=== PATIENT | male | born 1990 | race Two or more races ===

== ENCOUNTER → 2020-08-06 15:51 | Outpatient (BNVA) | payer MEDICAID, SELFPAY | PROVIDERS: PCP Internal Medicine; Visit Provider Student in an Organized Health Care Education/Training Program | DX: M75.81 Other shoulder lesions, right shoulder (principal); M75.82 Other shoulder lesions, left shoulder; M77.02 Medial epicondylitis, left elbow; R76.8 Other specified abnormal immunological findings in serum | CPT/HCPCS: 99202 ==

== ENCOUNTER 2020-08-07 12:37 | Outpatient (REF) | payer MEDICAID, SELFPAY ==
--- NOTE | ~2020-08-07 | XR_ITS ---
EXAMINATION: BILATERAL HAND/WRIST. BILATERAL KNEES. CLINICAL INFORMATION: Pain. COMPARISON: None TECHNIQUE: 3 views each hand/wrist. 4 views each knee. FINDINGS: LEFT HAND: PIP, DIP and MCP joints are normal. No fracture, bony abnormality. The intercarpal joints are normal. The soft tissues are normal. RIGHT HAND/WRIST: Visualized PIP, DIP and MCP joints are normal. No bony erosive changes or loose bodies. No joint effusion or soft tissue swelling. The right wrist appears normal. No fracture or dislocation. LEFT KNEE: There is tricompartment joint space is normal. No bony erosive changes, loose bodies or joint effusions. RIGHT KNEE: The tricompartment joint space is normal. There is no loose bodies or bony erosive changes. The soft tissues are normal. No abnormal joint effusion seen. XR/XR knee RT 3V IMPRESSION: Unremarkable bilateral hand/wrist exam. Bilateral knee exam.
--- NOTE | ~2020-08-07 | XR_ITS ---
EXAMINATION: BILATERAL HAND/WRIST. BILATERAL KNEES. CLINICAL INFORMATION: Pain. COMPARISON: None TECHNIQUE: 3 views each hand/wrist. 4 views each knee. FINDINGS: LEFT HAND: PIP, DIP and MCP joints are normal. No fracture, bony abnormality. The intercarpal joints are normal. The soft tissues are normal. RIGHT HAND/WRIST: Visualized PIP, DIP and MCP joints are normal. No bony erosive changes or loose bodies. No joint effusion or soft tissue swelling. The right wrist appears normal. No fracture or dislocation. LEFT KNEE: There is tricompartment joint space is normal. No bony erosive changes, loose bodies or joint effusions. RIGHT KNEE: The tricompartment joint space is normal. There is no loose bodies or bony erosive changes. The soft tissues are normal. No abnormal joint effusion seen. XR/XR knee LT 3V IMPRESSION: Unremarkable bilateral hand/wrist exam. Bilateral knee exam.
--- NOTE | ~2020-08-07 | XR_ITS ---
EXAMINATION: BILATERAL HAND/WRIST. BILATERAL KNEES. CLINICAL INFORMATION: Pain. COMPARISON: None TECHNIQUE: 3 views each hand/wrist. 4 views each knee. FINDINGS: LEFT HAND: PIP, DIP and MCP joints are normal. No fracture, bony abnormality. The intercarpal joints are normal. The soft tissues are normal. RIGHT HAND/WRIST: Visualized PIP, DIP and MCP joints are normal. No bony erosive changes or loose bodies. No joint effusion or soft tissue swelling. The right wrist appears normal. No fracture or dislocation. LEFT KNEE: There is tricompartment joint space is normal. No bony erosive changes, loose bodies or joint effusions. RIGHT KNEE: The tricompartment joint space is normal. There is no loose bodies or bony erosive changes. The soft tissues are normal. No abnormal joint effusion seen. XR/XR hand wrist RT IMPRESSION: Unremarkable bilateral hand/wrist exam. Bilateral knee exam.
--- NOTE | ~2020-08-07 | XR_ITS ---
EXAMINATION: BILATERAL HAND/WRIST. BILATERAL KNEES. CLINICAL INFORMATION: Pain. COMPARISON: None TECHNIQUE: 3 views each hand/wrist. 4 views each knee. FINDINGS: LEFT HAND: PIP, DIP and MCP joints are normal. No fracture, bony abnormality. The intercarpal joints are normal. The soft tissues are normal. RIGHT HAND/WRIST: Visualized PIP, DIP and MCP joints are normal. No bony erosive changes or loose bodies. No joint effusion or soft tissue swelling. The right wrist appears normal. No fracture or dislocation. LEFT KNEE: There is tricompartment joint space is normal. No bony erosive changes, loose bodies or joint effusions. RIGHT KNEE: The tricompartment joint space is normal. There is no loose bodies or bony erosive changes. The soft tissues are normal. No abnormal joint effusion seen. XR/XR hand wrist LT IMPRESSION: Unremarkable bilateral hand/wrist exam. Bilateral knee exam.
[2020-08-07 13:06] LABS: MANUAL DIFF FLAG NO
[2020-08-07 13:10] LABS: Basophils Percent Auto 0.6 % (0-2); Eosinophils Absolute Auto 0.2 X10*3/uL (0.0-0.4); Eosinophils Percent Auto 2.4 % (0-4); Hematocrit 41.4 % (42-52); Hemoglobin 13.9 g/dl (14.0-18.0); Imm Gran Abs Auto 0.01 X10*3/uL (0.00-0.03); Imm Gran Pct Auto 0.1 % (0.0-0.4); Lymphocytes Absolute Auto 1.3 X10*3/uL (1.2-4.9); Mean Corpuscular HGB Conc 33.6 g/dl (31.0-36.0); Mean Corpuscular Hemoglobin 31.7 pg (27.0-33.0); Mean Corpuscular Volume 94.3 fL (80-98); Mean Platelet Volume 10.1 fL (9.4-12.4); Monocytes Absolute Auto 0.6 X10*3/uL (0.1-1.2); Monocytes Percent Auto 8.8 % (2-11); Neutrophils Absolute Auto 4.6 X10*3/uL (2.0-8.3); Neutrophils Percent Auto 69.1 % (45-73); Platelet Count 192 X10*3/uL (160-400); Red Blood Count 4.39 X10*6/uL (4.60-5.80); Red Cell Distribution Width 12.1 % (11.0-16.0); White Blood Count 6.7 X10*3/uL (4.8-10.8)
[2020-08-07 13:54] LABS: Erythrocyte Sedimentation Rate 2 MM/HR (0-15)
[2020-08-07 14:27] LABS: Alanine Aminotransferase 22 U/L (0-40); Albumin Level 4.6 g/dL (3.5-5.0); Alkaline Phosphatase 60 U/L (39-117); Anion Gap 11 (12-20); Aspartate Amino Transferase 18 U/L (5-37); Bilirubin Total 0.6 mg/dL (0.0-1.0); Blood Urea Nitrogen 15 mg/dL (9-16); C Reactive Protein 0.09 mg/dL (< or = 0.50); Calcium 9.4 mg/dL (8.4-10.2); Carbon Dioxide 31 mmol/L (22-29); Chloride 102 mmol/L (96-108); Estimated Glomerular Filt Rate > 60; Glucose Random 86 mg/dL (60-115); Potassium 4.5 mmol/L (3.3-5.1); Sodium 139 mmol/L (135-145); Total Protein 7.5 g/dL (6.5-8.0)
[2020-08-07 14:34] LABS: Rheumatoid Factor 26.2 IU/mL (<15.0)
[2020-08-08 08:52] LABS: HBsAGNum1 0.19 S/CO (0.00-0.99); Hepatitis B Surface Antigen Negative (Negative)
[2020-08-08 09:36] LABS: Hepatitis B Core Antibody Nonreactive (Nonreactive); ~Hepatitis C Antibody Nonreactive (Nonreactive)
[2020-08-08 12:46] LABS: HBS Num2 9.93 mIU/mL (0-7.99); HBS Num3 9.58 mIU/mL (0-7.99)
[2020-08-09 01:57] LABS: Cyclic Citrullinated Peptide <16 UNITS
[2020-08-09 08:28] LABS: Hepatitis A Antibody IgM 0.11 Index (0-0.79); ~Hepatitis A Antibody IgM Nonreactive (Nonreactive)
[2020-08-09 08:47] LABS: HBS Num1 9.94 mIU/mL (0-7.99); HBc Num1 0.11 S/CO (0.00-0.79); ~HepC Num1 0.09 S/CO (0.00-0.79)
[2020-08-09 08:53] LABS: ~Hepatitis B Surface Antibody Grayzone (Nonreactive)
[2020-08-09 13:12] LABS: Antibody to SS-A Antigen <1.0 NEG AI (<1.0 NEG); Antibody to SS-B Antigen <1.0 NEG AI (<1.0 NEG)
[2020-08-10 18:37] LABS: TS Negative Control Passed; TS Panel A 0; TS Panel B 0; TS Positive Control Passed; TSpotTB Negative (SeeBelow)
== END 2020-08-07 12:38 | disposition home or self-care (01) ==
LOC: HO.LAB 12:37
PROVIDERS: PCP Internal Medicine; Visit Provider Student in an Organized Health Care Education/Training Program
DX: R76.8 Other specified abnormal immunological findings in serum (principal)
CPT/HCPCS: 36415; 73110; 73130; 73562; 80053; 85025; 85652; 86140; 86200; 86235; 86431; 86481; 86704; 86706; 86709; 86803; 87340

== ENCOUNTER → 2020-08-29 10:55 | Outpatient (BNVA) | payer MEDICAID, SELFPAY | PROVIDERS: Visit Provider Student in an Organized Health Care Education/Training Program | DX: R76.8 Other specified abnormal immunological findings in serum (principal) | CPT/HCPCS: 99212 ==

== ENCOUNTER 2020-10-01 11:00 | Outpatient (RCR) | payer MEDICAID, SELFPAY ==
--- NOTE | 2020-08-22 15:31 | MHC.PT.EP ---
[facility] [place] Office [place] Office [place] Office [address] Lala Blackwell [address] [phone] F: [phone] F: [phone] F: [phone] F: [phone] Physical Therapy Plan of Care Date of Evaluation: 08/22/20 Date of Surgery: Diagnosis: R shoulder pain Assessment: 30 y/o RHD male referred to PT with R shoulder pain. However patients pain is located mainly L medial elbow and wrist and we will focus on these sx. Pain and difficulty with dressing, lifting, reaching, and his exercise regime. S/s consistent with L medial epicondylitis and ? scaphoid/lunate involvement due to wrist clicking and pain. Cervical and shoulder AROM WNL, mildly decreased wrist extension/flexion and elbow pronation strength, increased TTP L pronators/wrist flexors, and impaired postural awareness. Scapular strength not assessed this date. He would benefit from PT 1x/week foro 5 weeks to address impairments, implement HEP and optimize functional mobility. POC to include taping, STM/IASTM, wrist isometrics > eccentrics, scapular strenghtening and postural training. Frequency and Duration: The patient will be seen 1x/week for 5 weeks Short Term Goals: 3 week 1. I with HEP 2. Pt will report 50% reduction in pain of L medial elbow Usp Goals: 5 week 1. I with HEP and self management of sx 2. Pt will be able to dress with pain < 3/10 3. Pt will be able to reach overhead with pain < 3/10 Treatment Plan: Modalities to reduce pain, spasms and effusion. Manual therapy to restore motion and function. Therapeutic exercise to improve strength and flexibility. Neuromuscular re-education for posture and balance. Therapeutic activities to return to functional activities of daily living. Electronically signed by: Love Samano PT Please sign and return to therapist. Thank you for your referral.
--- NOTE | 2020-10-02 17:28 | MHC.PT.DC ---
[facility] [place] Office [place] Office [place] Office [address] Lala Blackwell [address] [phone] F: [phone] F: [phone] F: [phone] F: [phone] Physical Therapy Discharge Report Diagnosis: R shoulder pain Date of Surgery: Date of Evaluation: 08/22/20 Date of Discharge: 10/01/20 Treatments to Date: 6 Cancellations to Date: 1 No Shows to Date: 0 Discharge Status: Independent with HEP Discharge Summary: Pt reports he feels better overall and is ready for d/c. Reviewed precautions with RA and HEP. No further questions. Electronically signed by: Love Samano PT Please sign and return to therapist. Thank you for your referral.
== END 2020-10-02 17:28 | disposition home or self-care (01) ==
LOC: HO.PT 11:00
PROVIDERS: PCP Internal Medicine; Visit Provider Student in an Organized Health Care Education/Training Program
DX: M75.81 Other shoulder lesions, right shoulder (principal)
CPT/HCPCS: 97110; 97161

== ENCOUNTER 2021-03-12 12:20 | Outpatient (REF) | payer MEDICAID, SELFPAY ==
[2021-03-12 13:38] LABS: Alanine Aminotransferase 27 U/L (0-40); Albumin Level 4.4 g/dL (3.5-5.0); Alkaline Phosphatase 57 U/L (39-117); Anion Gap 11 (12-20); Aspartate Amino Transferase 19 U/L (5-37); Bilirubin Total 0.6 mg/dL (0.0-1.0); Blood Urea Nitrogen 18 mg/dL (9-16); Calcium 9.4 mg/dL (8.4-10.2); Carbon Dioxide 26 mmol/L (22-29); Chloride 106 mmol/L (96-108); Cholesterol 174 mg/dL; Estimated Glomerular Filt Rate > 60; Glucose Random 89 mg/dL (60-115); HDL Cholesterol 36 mg/dL; LDL Cholesterol Calculated 118 mg/dl; Potassium 4.2 mmol/L (3.3-5.1); Sodium 139 mmol/L (135-145); Total Protein 7.3 g/dL (6.5-8.0); Triglycerides 104 mg/dL
[2021-03-12 13:54] LABS: Erythrocyte Sedimentation Rate 3 MM/HR (0-15)
== END 2021-03-12 12:21 | disposition home or self-care (01) ==
LOC: HO.LAB 12:20
PROVIDERS: Visit Provider Internal Medicine
DX: M05.9 Rheumatoid arthritis with rheumatoid factor, unspecified (principal); M13.0 Polyarthritis, unspecified
CPT/HCPCS: 36415; 80053; 80061; 85652

== ENCOUNTER 2021-08-28 07:48 | Outpatient (REF) | payer MEDICAID, SELFPAY ==
[2021-08-28 09:18] LABS: MANUAL DIFF FLAG NO
[2021-08-28 09:43] LABS: Basophils Percent Auto 0.5 % (0-2); Eosinophils Absolute Auto 0.1 X10*3/uL (0.0-0.4); Eosinophils Percent Auto 1.7 % (0-4); Hematocrit 38.9 % (42.0-52.0); Hemoglobin 13.2 g/dl (14.0-18.0); Imm Gran Abs Auto 0.02 X10*3/uL (0.00-0.03); Imm Gran Pct Auto 0.3 % (0.0-0.4); Lymphocytes Absolute Auto 1.2 X10*3/uL (1.2-4.9); Lymphocytes Percent Auto 18.9 % (20-40); Mean Corpuscular HGB Conc 33.9 g/dl (31.0-36.0); Mean Corpuscular Hemoglobin 32.5 pg (27.0-33.0); Mean Corpuscular Volume 95.8 fL (80.0-98.0); Mean Platelet Volume 10.5 fL (9.4-12.4); Monocytes Absolute Auto 0.5 X10*3/uL (0.1-1.2); Monocytes Percent Auto 7.9 % (2-11); Neutrophils Absolute Auto 4.7 x10*3/uL (2.0-8.3); Neutrophils Percent Auto 70.7 % (45-73); Platelet Count 207 X10*3/uL (160-400); Red Blood Count 4.06 X10*6/uL (4.60-5.80); Red Cell Distribution Width 12.8 % (11.0-16.0); White Blood Count 6.6 X10*3/uL (4.8-10.8)
[2021-08-28 10:22] LABS: Alanine Aminotransferase 33 U/L (0-40); Albumin Level 4.4 g/dL (3.5-5.0); Alkaline Phosphatase 59 U/L (39-117); Anion Gap 10 (12-20); Aspartate Amino Transferase 20 U/L (5-37); Bilirubin Total 0.5 mg/dL (0.0-1.0); Blood Urea Nitrogen 16 mg/dL (9-16); C Reactive Protein 0.14 mg/dL (< or = 0.50); Calcium 9.4 mg/dL (8.4-10.2); Carbon Dioxide 27 mmol/L (22-29); Chloride 105 mmol/L (96-108); Erythrocyte Sedimentation Rate 2 MM/HR (0-15); Estimated Glomerular Filt Rate > 60; Glucose Random 100 mg/dL (60-115); Potassium 4.1 mmol/L (3.3-5.1); Sodium 138 mmol/L (135-145); Total Protein 7.1 g/dL (6.5-8.0)
== END 2021-08-28 07:49 | disposition home or self-care (01) ==
LOC: HO.LAB 07:48
PROVIDERS: PCP Internal Medicine; Visit Provider Nurse Practitioner Family
DX: M05.9 Rheumatoid arthritis with rheumatoid factor, unspecified (principal); Z79.899 Other long term (current) drug therapy
CPT/HCPCS: 36415; 80053; 85025; 85652; 86140; 99212

== ENCOUNTER → 2021-09-03 08:12 | Outpatient (BNVA) | payer MEDICAID, SELFPAY | PROVIDERS: PCP Internal Medicine; Visit Provider Nurse Practitioner Family | DX: M05.9 Rheumatoid arthritis with rheumatoid factor, unspecified (principal); H54.8 Legal blindness, as defined in USA | CPT/HCPCS: 99212 ==

== ENCOUNTER 2021-10-03 08:14 | Outpatient (REF) | payer MEDICAID, SELFPAY ==
[2021-10-03 08:56] LABS: MANUAL DIFF FLAG NO
[2021-10-03 09:08] LABS: Basophils Percent Auto 0.7 % (0-2); Eosinophils Absolute Auto 0.1 X10*3/uL (0.0-0.4); Eosinophils Percent Auto 2.6 % (0-4); Hematocrit 37.7 % (42.0-52.0); Hemoglobin 12.7 g/dl (14.0-18.0); Imm Gran Abs Auto 0.01 X10*3/uL (0.00-0.03); Imm Gran Pct Auto 0.2 % (0.0-0.4); Lymphocytes Absolute Auto 1.2 X10*3/uL (1.2-4.9); Lymphocytes Percent Auto 22.6 % (20-40); Mean Corpuscular HGB Conc 33.7 g/dl (31.0-36.0); Mean Corpuscular Hemoglobin 32.6 pg (27.0-33.0); Mean Corpuscular Volume 96.9 fL (80.0-98.0); Mean Platelet Volume 10.5 fL (9.4-12.4); Monocytes Absolute Auto 0.4 X10*3/uL (0.1-1.2); Monocytes Percent Auto 7.3 % (2-11); Neutrophils Absolute Auto 3.6 x10*3/uL (2.0-8.3); Neutrophils Percent Auto 66.6 % (45-73); Platelet Count 193 X10*3/uL (160-400); Red Blood Count 3.89 X10*6/uL (4.60-5.80); Red Cell Distribution Width 12.6 % (11.0-16.0); White Blood Count 5.5 X10*3/uL (4.8-10.8)
[2021-10-03 09:43] LABS: Alanine Aminotransferase 31 U/L (0-40); Albumin Level 4.1 g/dL (3.5-5.0); Alkaline Phosphatase 55 U/L (39-117); Anion Gap 11 (12-20); Aspartate Amino Transferase 17 U/L (5-37); Bilirubin Total 0.4 mg/dL (0.0-1.0); Blood Urea Nitrogen 13 mg/dL (9-16); C Reactive Protein 0.09 mg/dL (< or = 0.50); Calcium 9.6 mg/dL (8.4-10.2); Carbon Dioxide 27 mmol/L (22-29); Chloride 106 mmol/L (96-108); Estimated Glomerular Filt Rate > 60; Glucose Random 95 mg/dL (60-115); Potassium 4.2 mmol/L (3.3-5.1); Sodium 140 mmol/L (135-145); Total Protein 6.7 g/dL (6.5-8.0)
[2021-10-03 09:49] LABS: Erythrocyte Sedimentation Rate 2 MM/HR (0-15)
== END 2021-10-03 08:15 | disposition home or self-care (01) ==
LOC: HO.LAB 08:14
PROVIDERS: PCP Internal Medicine; Visit Provider Nurse Practitioner Family
DX: M05.9 Rheumatoid arthritis with rheumatoid factor, unspecified (principal)
CPT/HCPCS: 36415; 80053; 85025; 85652; 86140

== ENCOUNTER 2021-12-09 12:28 | Outpatient (REF) | payer MEDICAID, SELFPAY ==
[2021-12-09 13:41] LABS: MANUAL DIFF FLAG NO
[2021-12-09 13:47] LABS: Basophils Percent Auto 0.3 % (0-2); Eosinophils Absolute Auto 0.1 X10*3/uL (0.0-0.4); Eosinophils Percent Auto 1.2 % (0-4); Hematocrit 38.1 % (42.0-52.0); Hemoglobin 12.8 g/dl (14.0-18.0); Imm Gran Abs Auto 0.03 X10*3/uL (0.00-0.03); Imm Gran Pct Auto 0.4 % (0.0-0.4); Lymphocytes Absolute Auto 1.2 X10*3/uL (1.2-4.9); Lymphocytes Percent Auto 15.2 % (20-40); Mean Corpuscular HGB Conc 33.6 g/dl (31.0-36.0); Mean Corpuscular Hemoglobin 32.1 pg (27.0-33.0); Mean Corpuscular Volume 95.5 fL (80.0-98.0); Mean Platelet Volume 10.4 fL (9.4-12.4); Monocytes Absolute Auto 0.6 X10*3/uL (0.1-1.2); Monocytes Percent Auto 8.4 % (2-11); Neutrophils Absolute Auto 5.7 x10*3/uL (2.0-8.3); Neutrophils Percent Auto 74.5 % (45-73); Platelet Count 205 X10*3/uL (160-400); Red Blood Count 3.99 X10*6/uL (4.60-5.80); Red Cell Distribution Width 12.7 % (11.0-16.0); White Blood Count 7.6 X10*3/uL (4.8-10.8)
[2021-12-09 14:12] LABS: Alanine Aminotransferase 45 U/L (0-40); Aspartate Amino Transferase 26 U/L (5-37); C Reactive Protein 0.16 mg/dL (< or = 0.50); Estimated Glomerular Filt Rate > 60
[2021-12-09 14:32] LABS: Erythrocyte Sedimentation Rate 3 MM/HR (0-15)
== END 2021-12-09 12:29 | disposition home or self-care (01) ==
LOC: HO.10HDL 12:28
PROVIDERS: Visit Provider Nurse Practitioner Family
DX: M05.9 Rheumatoid arthritis with rheumatoid factor, unspecified (principal); R20.2 Paresthesia of skin; R76.8 Other specified abnormal immunological findings in serum; Z79.899 Other long term (current) drug therapy
CPT/HCPCS: 36415; 82565; 84450; 84460; 85025; 85652; 86140; 99212

== ENCOUNTER 2021-12-11 09:27 | Outpatient (REF) | payer MEDICAID, SELFPAY ==
--- NOTE | 2021-12-11 09:31 | EMG_ITS ---
Bilateral median and ulnar motor and sensory studies were performed. Bilateral radial sensory studies were performed, and paraspinal muscles were tested with a needle. IMPRESSION: 1. [id number] bilateral median neuropathy across carpal tunnel. 2. Mild left ulnar neuropathy across cubital tunnel. MD ASHISH [place]/LUIS ANTONIOL / [id number]
== END 2021-12-11 09:28 | disposition home or self-care (01) ==
LOC: HO.NEURO 09:27
PROVIDERS: PCP Internal Medicine; Visit Provider Internal Medicine
DX: G56.03 Carpal tunnel syndrome, bilateral upper limbs (principal)
CPT/HCPCS: 95886; 95911

== ENCOUNTER 2021-12-30 08:34 | Outpatient (REF) | payer MEDICAID, SELFPAY ==
[2021-12-30 11:06] LABS: Alanine Aminotransferase 70 U/L (0-40); Aspartate Amino Transferase 38 U/L (5-37)
== END 2021-12-30 08:35 | disposition home or self-care (01) ==
LOC: HO.10HDL 08:34
PROVIDERS: Visit Provider Nurse Practitioner Family
DX: Z79.899 Other long term (current) drug therapy (principal)
CPT/HCPCS: 36415; 84450; 84460

== ENCOUNTER 2022-02-24 08:35 | Outpatient (REF) | payer MEDICAID, SELFPAY ==
[2022-02-24 10:32] LABS: MANUAL DIFF FLAG NO
[2022-02-24 10:34] LABS: Basophils Percent Auto 0.7 % (0-2); Eosinophils Absolute Auto 0.2 X10*3/uL (0.0-0.4); Eosinophils Percent Auto 2.7 % (0-4); Hematocrit 39.7 % (42.0-52.0); Hemoglobin 13.5 g/dl (14.0-18.0); Imm Gran Abs Auto 0.01 X10*3/uL (0.00-0.03); Imm Gran Pct Auto 0.2 % (0.0-0.4); Lymphocytes Absolute Auto 1.3 X10*3/uL (1.2-4.9); Lymphocytes Percent Auto 23.1 % (20-40); Mean Corpuscular Hemoglobin 31.8 pg (27.0-33.0); Mean Corpuscular Volume 93.6 fL (80.0-98.0); Mean Platelet Volume 10.6 fL (9.4-12.4); Monocytes Absolute Auto 0.6 X10*3/uL (0.1-1.2); Neutrophils Absolute Auto 3.5 x10*3/uL (2.0-8.3); Neutrophils Percent Auto 63.3 % (45-73); Platelet Count 195 X10*3/uL (160-400); Red Blood Count 4.24 X10*6/uL (4.60-5.80); Red Cell Distribution Width 11.7 % (11.0-16.0); White Blood Count 5.5 X10*3/uL (4.8-10.8)
[2022-02-24 10:47] LABS: Alanine Aminotransferase 41 U/L (0-40); Albumin Level 4.3 g/dL (3.5-5.0); Alkaline Phosphatase 67 U/L (39-117); Anion Gap 13 (12-20); Aspartate Amino Transferase 22 U/L (5-37); Bilirubin Total 0.4 mg/dL (0.0-1.0); Blood Urea Nitrogen 16 mg/dL (9-16); Calcium 9.1 mg/dL (8.4-10.2); Carbon Dioxide 28 mmol/L (22-29); Chloride 103 mmol/L (96-108); Estimated Glomerular Filt Rate > 60; Glucose Random 70 mg/dL (60-115); Potassium 4.2 mmol/L (3.3-5.1); Sodium 140 mmol/L (135-145)
== END 2022-02-24 08:36 | disposition home or self-care (01) ==
LOC: HO.10HDL 08:35
PROVIDERS: Visit Provider Internal Medicine
DX: F12.988 Cannabis use, unspecified with other cannabis-induced disorder (principal); G56.03 Carpal tunnel syndrome, bilateral upper limbs; M06.9 Rheumatoid arthritis, unspecified; R11.10 Vomiting, unspecified; R51.9 Headache, unspecified
CPT/HCPCS: 36415; 80053; 85025

== ENCOUNTER 2022-04-21 09:51 | Outpatient (REF) | payer MEDICAID, SELFPAY ==
[2022-04-21 11:26] LABS: Erythrocyte Sedimentation Rate 2 MM/HR (0-15)
[2022-04-21 12:45] LABS: Alanine Aminotransferase 28 U/L (0-40); Aspartate Amino Transferase 19 U/L (5-37); C Reactive Protein 0.08 mg/dL (< or = 0.50)
== END 2022-04-21 09:52 | disposition home or self-care (01) ==
LOC: HO.10HDL 09:51
PROVIDERS: Visit Provider Nurse Practitioner Family
DX: M05.9 Rheumatoid arthritis with rheumatoid factor, unspecified (principal); M79.7 Fibromyalgia; M25.511 Pain in right shoulder; M25.512 Pain in left shoulder; M25.562 Pain in left knee
CPT/HCPCS: 36415; 73030; 73562; 84450; 84460; 85652; 86140; 99212

== ENCOUNTER 2022-04-21 10:04 | Outpatient (REF) | payer MEDICAID, SELFPAY ==
--- NOTE | ~2022-04-21 | XR_ITS ---
EXAMINATION: BILATERAL SHOULDER X-RAY CLINICAL INFORMATION: Pain COMPARISON: None TECHNIQUE: 4 views of each shoulder FINDINGS: Bone alignment is normal. No fracture or dislocation. There is asymmetric appearance of the acromioclavicular joints. The left acromioclavicular joint appears wider than the right. Left AC joint does not appear abnormally widened measuring 5 mm. Glenohumeral joints are normal. Soft tissues are normal. XR/XR shoulder LT min 2V IMPRESSION: Asymmetric appearance of the acromioclavicular joints. If there is clinical suspicion of AC separation, weightbearing views would be recommended.
--- NOTE | ~2022-04-21 | XR_ITS ---
EXAMINATION: XR KNEE, LEFT CLINICAL INFORMATION: Pain COMPARISON: None TECHNIQUE: 3 views of the left knee. FINDINGS: Bone alignment is normal. No fracture or dislocation. Joint spaces are normal. There is no joint effusion. There are 2 small superficial soft tissue calcifications. XR/XR knee LT 3V IMPRESSION: Unremarkable exam.
--- NOTE | ~2022-04-21 | XR_ITS ---
EXAMINATION: BILATERAL SHOULDER X-RAY CLINICAL INFORMATION: Pain COMPARISON: None TECHNIQUE: 4 views of each shoulder FINDINGS: Bone alignment is normal. No fracture or dislocation. There is asymmetric appearance of the acromioclavicular joints. The left acromioclavicular joint appears wider than the right. Left AC joint does not appear abnormally widened measuring 5 mm. Glenohumeral joints are normal. Soft tissues are normal. XR/XR shoulder RT min 2V IMPRESSION: Asymmetric appearance of the acromioclavicular joints. If there is clinical suspicion of AC separation, weightbearing views would be recommended.
== END 2022-04-21 10:05 | disposition home or self-care (01) ==
LOC: HO.XRAY 10:04
PROVIDERS: PCP Internal Medicine; Visit Provider Nurse Practitioner Family
DX: M25.511 Pain in right shoulder (principal); M25.512 Pain in left shoulder; M25.562 Pain in left knee
CPT/HCPCS: 73030; 73562

== ENCOUNTER 2022-05-27 10:04 | Outpatient (REF) | payer MEDICAID, SELFPAY ==
[2022-05-27 14:16] LABS: MANUAL DIFF FLAG NO
[2022-05-27 14:22] LABS: Basophils Percent Auto 0.6 % (0-2); Eosinophils Absolute Auto 0.1 X10*3/uL (0.0-0.4); Eosinophils Percent Auto 2.1 % (0-4); Hematocrit 41.2 % (42.0-52.0); Imm Gran Abs Auto 0.02 X10*3/uL (0.00-0.03); Imm Gran Pct Auto 0.3 % (0.0-0.4); Lymphocytes Absolute Auto 1.3 X10*3/uL (1.2-4.9); Lymphocytes Percent Auto 21.3 % (20-40); Mean Corpuscular Hemoglobin 31.3 pg (27.0-33.0); Monocytes Absolute Auto 0.5 X10*3/uL (0.1-1.2); Monocytes Percent Auto 8.5 % (2-11); Neutrophils Absolute Auto 4.2 x10*3/uL (2.0-8.3); Neutrophils Percent Auto 67.2 % (45-73); Platelet Count 217 X10*3/uL (160-400); Red Blood Count 4.48 X10*6/uL (4.60-5.80); Red Cell Distribution Width 11.9 % (11.0-16.0); White Blood Count 6.2 X10*3/uL (4.8-10.8)
[2022-05-27 14:49] LABS: Alanine Aminotransferase 26 U/L (0-40); Albumin Level 4.3 g/dL (3.5-5.0); Alkaline Phosphatase 65 U/L (39-117); Anion Gap 9 (12-20); Aspartate Amino Transferase 16 U/L (5-37); Bilirubin Total 0.4 mg/dL (0.0-1.0); Blood Urea Nitrogen 14 mg/dL (9-16); Calcium 9.1 mg/dL (8.4-10.2); Carbon Dioxide 27 mmol/L (22-29); Chloride 106 mmol/L (96-108); Cholesterol 185 mg/dL; Estimated Glomerular Filt Rate > 60; Glucose Fasting 85 mg/dL (60-99); HDL Cholesterol 39 mg/dL; Iron 65 mcg/dL (45-160); LDL Cholesterol Calculated 130 mg/dl; Percent Iron Saturation 23 % (15-50); Potassium 4.1 mmol/L (3.3-5.1); Sodium 138 mmol/L (135-145); Total Iron Binding Capacity 280 mcg/dL (228-428); Triglycerides 82 mg/dL; Unsaturated Iron Binding 215 ug/dL
[2022-05-27 14:55] LABS: Ferritin 41 ng/mL (20-250)
[2022-05-28 11:54] LABS: Transferrin 239 mg/dL (188-341)
[2022-05-29 09:42] LABS: HBS Num1 8.65 mIU/mL (0-7.99); HBc Num1 0.07 S/CO (0.00-0.79); HBsAGNum1 0.32 S/CO (0.00-0.99); Hepatitis A Antibody IgM 0.23 Index (0-0.79); Hepatitis B Core Antibody Nonreactive (Nonreactive); Hepatitis B Surface Antigen Negative (Negative); ~HepC Num1 0.08 S/CO (0.00-0.79); ~Hepatitis A Antibody IgM Nonreactive (Nonreactive); ~Hepatitis C Antibody Nonreactive (Nonreactive)
[2022-05-29 11:03] LABS: Anti Nuclear Antibody Screen NEGATIVE (NEGATIVE)
[2022-05-29 13:41] LABS: HBS Num2 8.93 mIU/mL (0-7.99); HBS Num3 8.83 mIU/mL (0-7.99); ~Hepatitis B Surface Antibody GRAYZONE (Nonreactive)
[2022-06-02 23:08] LABS: Smooth Muscle Antibody <20 U (<20)
== END 2022-05-27 10:05 | disposition home or self-care (01) ==
LOC: HO.10HDL 10:04
PROVIDERS: Visit Provider Internal Medicine
DX: G56.03 Carpal tunnel syndrome, bilateral upper limbs (principal); H35.52 Pigmentary retinal dystrophy; M06.9 Rheumatoid arthritis, unspecified; R74.01 Elevation of levels of liver transaminase levels
CPT/HCPCS: 36415; 80053; 80061; 82728; 83540; 84466; 85025; 86015; 86038; 86039; 86704; 86706; 86709; 86803; 87340

== ENCOUNTER → 2022-06-03 07:53 | Outpatient (BNVA) | payer MEDICAID, SELFPAY | PROVIDERS: PCP Internal Medicine; Visit Provider Physician Assistant | DX: M75.22 Bicipital tendinitis, left shoulder (principal); M75.82 Other shoulder lesions, left shoulder | CPT/HCPCS: 20610; 99202; J1040 ==

== ENCOUNTER 2022-07-24 08:00 | Outpatient (RCR) | payer MEDICAID, SELFPAY ==
--- NOTE | 2022-06-24 13:10 | MHC.PT.EP ---
[facility] [place] Office [place] Office [place] Office [address] T[address] Blackwell [address] [phone] F: [phone] F: [phone] F: [phone] F: [phone] Physical Therapy Plan of Care Date of Evaluation: Date of Surgery: Diagnosis: bilateral shoulder pain (L more than R) Assessment: Patient is a Afghan speaking, legally blind 32 y.o. male who is referred to PT by OSMIN Singh with Dx of bilateral shoulder pain. PT diagnosis is bilateral subacromial impingment syndrome, L worse than R. Patient impairments include pain, reduced ROM, weakness with postural/shoulder girdle muscle imbalances. Patient current functional limitations are difficulty lifting his arm overhead, lifting anything heavy, washing hair, reaching his back, putting on under shirts. Patient will benefit from skilled PT to address aforementioned impairments and functional limitations to meet established goals. Frequency and Duration: The patient will be seen 2x/week for 4 weeks Short Term Goals: 2 weeks Patient demonstrates consistency and independence with HEP to self manage symptoms. Patient presents with increased R shoulder ER 70 degrees to be able to reach behind back for bathing. Chiropractic Neurologist Goals: 4 weeks Patient presents with increased L shoulder middle trapezius strength 4+/5 to be able to lift/carrry groceries. Patient presents with increased L shoulder flexion 175 degrees to reach overhead to high cabinets. Treatment Plan: Modalities to reduce pain, spasms and effusion. Manual therapy to restore motion and function. Therapeutic exercise to improve strength and flexibility. Neuromuscular re-education for posture and balance. Therapeutic activities to return to functional activities of daily living. Electronically signed by: Shahriar Westbrook, PT, DPT Please sign and return to therapist. Thank you for your referral.
--- NOTE | 2022-08-24 10:50 | MHC.PT.DC ---
[facility] [place] Office [place] Office [place] Office [address] Lala Blackwell [address] [phone] F: [phone] F: [phone] F: [phone] F: [phone] Physical Therapy Discharge Report Diagnosis: bilateral shoulder pain (L more than R) Date of Surgery: Date of Evaluation: 06/24/22 Date of Discharge: 08/24/22 Treatments to Date: 9 Cancellations to Date: 1 No Shows to Date: 0 Discharge Status: Achieved Goals Improved Function Independent with HEP Discharge Summary: Patient assessment during last PT treatment on 07/24: No px reported with all activity today. ER= B/L , L sh FE ~162*, IR/L to ~T11 discomfort L with end range FE, IR only. Pt felt ready for D/C to HEP today. Electronically signed by: Shahriar Westbrook, PT, DPT Please sign and return to therapist. Thank you for your referral.
== END 2022-08-24 10:50 | disposition home or self-care (01) ==
LOC: HO.PT 08:00
PROVIDERS: PCP Internal Medicine; Visit Provider Nurse Practitioner Family
DX: M25.511 Pain in right shoulder (principal)
CPT/HCPCS: 97110; 97161

== ENCOUNTER → 2022-09-11 07:59 | Outpatient (BNVA) | payer MEDICAID, SELFPAY | PROVIDERS: PCP Internal Medicine; Visit Provider Nurse Practitioner Family | DX: M05.9 Rheumatoid arthritis with rheumatoid factor, unspecified (principal); M79.7 Fibromyalgia; M75.22 Bicipital tendinitis, left shoulder | CPT/HCPCS: 99212 ==

== ENCOUNTER 2022-09-11 09:26 | Outpatient (REF) | payer MEDICAID, SELFPAY ==
[2022-09-11 10:58] LABS: MANUAL DIFF FLAG NO
[2022-09-11 11:04] LABS: Basophils Percent Auto 0.6 % (0-2); Eosinophils Absolute Auto 0.1 X10*3/uL (0.0-0.4); Eosinophils Percent Auto 2.2 % (0-4); Hematocrit 43.6 % (42.0-52.0); Hemoglobin 14.9 g/dl (14.0-18.0); Imm Gran Abs Auto 0.02 X10*3/uL (0.00-0.03); Imm Gran Pct Auto 0.3 % (0.0-0.4); Lymphocytes Absolute Auto 1.5 X10*3/uL (1.2-4.9); Lymphocytes Percent Auto 23.9 % (20-40); Mean Corpuscular HGB Conc 34.2 g/dl (31.0-36.0); Mean Corpuscular Hemoglobin 31.5 pg (27.0-33.0); Mean Corpuscular Volume 92.2 fL (80.0-98.0); Mean Platelet Volume 10.7 fL (9.4-12.4); Monocytes Absolute Auto 0.6 X10*3/uL (0.1-1.2); Monocytes Percent Auto 9.1 % (2-11); Neutrophils Absolute Auto 4.1 x10*3/uL (2.0-8.3); Neutrophils Percent Auto 63.9 % (45-73); Platelet Count 221 X10*3/uL (160-400); Red Blood Count 4.73 X10*6/uL (4.60-5.80); Red Cell Distribution Width 11.7 % (11.0-16.0); White Blood Count 6.5 X10*3/uL (4.8-10.8)
[2022-09-11 11:21] LABS: Alanine Aminotransferase 33 U/L (0-40); Albumin Level 4.5 g/dL (3.5-5.0); Alkaline Phosphatase 64 U/L (39-117); Anion Gap 11 (12-20); Aspartate Amino Transferase 19 U/L (5-37); Bilirubin Total 0.7 mg/dL (0.0-1.0); Blood Urea Nitrogen 12 mg/dL (9-16); Calcium 9.4 mg/dL (8.4-10.2); Carbon Dioxide 28 mmol/L (22-29); Chloride 106 mmol/L (96-108); Estimated Glomerular Filt Rate > 60; Glucose Random 86 mg/dL (60-115); Potassium 4.1 mmol/L (3.3-5.1); Sodium 141 mmol/L (135-145); Total Protein 7.2 g/dL (6.5-8.0)
[2022-09-11 11:39] LABS: Erythrocyte Sedimentation Rate 2 MM/HR (0-15)
== END 2022-09-11 09:27 | disposition home or self-care (01) ==
LOC: HO.10HDL 09:26
PROVIDERS: Visit Provider Nurse Practitioner Family
DX: M05.9 Rheumatoid arthritis with rheumatoid factor, unspecified (principal)
CPT/HCPCS: 36415; 80053; 85025; 85652; 86140

== ENCOUNTER 2022-12-22 09:54 | Outpatient (AMB) | payer MEDICAID, SELFPAY ==
--- NOTE | 2022-12-22 09:56 | MHC.OFFVIS ---
Intake Vital Signs 12/22/22 09:57 Height 5 ft 6 in Weight 175 lb 0.752 oz BMI 28.3 BP 122/64 Blood Pressure Location Rt brachial Position Sitting Pulse 75 Pulse Source Pulse Oximeter Temp 98.1 F Temp Source Skin Pulse Oximetry (%) 98 Intake Visit Reasons: Rheumatoid arthritis - Confirmed Emergency Vehicle Driver Required: Yes Emergency Vehicle Driver Language: Engineer Automated Equipment Name: Larissa [id number] Accompanied by: SOFTWARE DEVELOPMENT ADVISOR Trista Allergies No Known Allergies Allergy (Verified 12/22/22 10:01) Medication List - Last Reconciled 12/22/22 by Armand Conroy MD acetaminophen (Tylenol Extra Strength) 500 mg PO Q6H PRN HPI HPI Comments History of Present Illness Details The patient returns to Rheumatology for evaluation positive rheumatoid factor. In the past he had been treated for a while with methotrexate for multiple joint pains but did not really have much improvement. Eventually the methotrexate was stopped because of LFT abnormalities and his joints seemingly improved. Over the past year he notes intermittent episodes of popping in the left shoulder. Rarely is that shoulder painful at this point. He also complains of some lower back pain. This is in the right lumbar region. It tends to we worse with physical activity and it can occasionally bother him at night. On bad days he takes acetaminophen which is somewhat helpful. He has a SOFTWARE DEVELOPMENT ADVISOR with him here today. The visit was accomplished with the assistance of the [employer] translating service. [facility] Medical History (Updated 12/22/22 @ 10:35 by Armand Conroy MD) History of seizure Legally blind Seropositive rheumatoid arthritis Surgical History No significant past surgical history Family History Mother Diabetes Fibromyalgia Social History Household Members: None Housing: Apartment Alcohol intake: never Patient Tobacco Use Status: Never used Tobacco Substance Use Type: Marijuana Current occupation: right hand dominant Review of Systems Const Details: Negative for appetite change, weight change, fever, chills, malaise and fatigue Eyes Details: 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 He has a SOFTWARE DEVELOPMENT ADVISOR within today. Negative for dry eyes,headaches and dizziness Card Details: Negative chest pain, edema and syncope Resp Details: Negative for SOB, cough and wheezing GI Details: Negative indigestion/heartburn, nausea, abdominal pain, bowel changes, diarrhea, constipation and bloody stool. Skin/Breast Details: Negative for itching, rash, hives, Raynaud's symptoms, sun sensitivity, and skin cancer Andrew/Lymph Details: Negative for excessive bruising or bleeding. Physical Exam Vital Signs: Last Vital Signs Temp 98.1 F 12/22/22 09:57 Pulse 75 12/22/22 09:57 BP 122/64 12/22/22 09:57 Pulse Ox 98 12/22/22 09:57 BMI result Body Mass Index 28.3 APPEARANCE: Patient in no acute distress EXTREMITIES: No edema, no calf tenderness, normal peripheral pulses. NEURO: Oriented and alert x3. No focal weakness. Reflexes symmetric. Gait normal. SKIN: No inflammatory or neoplastic lesions. Normal color and turgor JOINT EXAM: Cervical Spine:.? Full range of motion without pain; no tenderness. Thoracic Spine:.? No scoliosis.? No tenderness on palpation. Lumbar Spine:.? Alignment normal.? Mild to moderate pain with flexion at about 75 degrees. There is some right paraspinal muscle tenderness. Straight leg raising seems to cause some posterior knee pain in both legs at about 60 degrees. Chest Wall:.? No tenderness, swelling, increased warmth or erythema. Hands:.? Normal pain-free range of motion without tenderness, swelling, increased warmth or erythema. Able to make a full fist and has a good field examiner strength. Wrists:.? Normal pain-free range of motion without tenderness, swelling, increased warmth or erythema. Elbows:. Normal pain-free range of motion without tenderness, swelling, increased warmth or erythema. Shoulders: Left: there is some popping in the shoulder that occurs at 100 degrees of abduction or with extremes of rotation. This is slightly painful. There is slight anterior tenderness without adenopathy, swelling or abductor weakness. Right: Full range of motion without pain. No tenderness, weakness, swelling, increased warmth or erythema. Hips:.? Full range of motion without pain. Hip bursa:.? No tenderness. Knees:.?? Normal pain-free range of motion without tenderness, swelling, increased warmth or erythema.? There is no effusion or crepitation Ankles:.? Normal pain-free range of motion without tenderness, swelling, increased warmth or erythema. Feet:.? Normal pain-free range of motion without tenderness, swelling, increased warmth or erythema. Tender points:.? Mild tenderness to digital palpation at the occiput, trapezius, second rib, lateral epicondyle, knees, greater trochanter and gluteal area bilaterally. ? Results Reviewed Results Reviewed: Laboratory Tests 08/07/20 08/07/20 05/27/22 12:56 12:56 10:10 Rheumatoid Factor 26.2 H Cycl Citrul Peptide IgG <16 RODRIGO Screen NEGATIVE Laboratory Tests 09/11/22 09:30 ESR [address] [address] XRay Report Signed Patient: Lee Colon MR#: [id number] : 1990 Acct:[id number] Age/Sex: 32 / M ADM Date: 04/21/[address]: Loraine Bazan NP Ordering Physician: Loraine Bazan NP Date of Service: 04/21/22 Procedure(s): XR shoulder RT min 2V Accession Number(s): [id number] cc: Loraine Bazan NP~ EXAMINATION: BILATERAL SHOULDER X-RAY CLINICAL INFORMATION: Pain? COMPARISON: None? TECHNIQUE: 4 views of each shoulder? FINDINGS: Bone alignment is normal. No fracture or dislocation. There is asymmetric appearance of the acromioclavicular joints. The left acromioclavicular joint appears wider than the right. Left AC joint does not appear abnormally widened measuring 5 mm. Glenohumeral joints are normal. Soft tissues are normal.? XR/XR shoulder RT min 2V IMPRESSION: Asymmetric appearance of the acromioclavicular joints. If there is clinical suspicion of AC separation, weightbearing views would be recommended.? The Dictated By: Yvrose Vasquez MD Assessment & Plan Assessment & Plan (1) Low back pain: Code(s): M54.50 - Low back pain, unspecified (2) Rheumatoid factor positive: Code(s): R76.8 - Other specified abnormal immunological findings in serum Plan I do not see any evidence today of active rheumatoid arthritis in spite of the positive rheumatoid factor. He does have many tender points so I think maybe his problem in the past had been fibromyalgia rather than rheumatoid arthritis. He seems to be tolerating his symptoms for now. Acetaminophen is helpful for him and it could be continued. The significance of the back pain is unclear. It has been there now for 6 months. We will check LS spine films to look into the possibility of degenerative disease or sacroiliitis. Follow-up in a year would be reasonable. Orders: Orders XR lumbar spine 2-3V Today M54.50 - Low back pain, unspecified Coding Level of Care Code Est Pt Level 3 (61379) Diagnoses Low back pain M54.50 Rheumatoid factor positive R76.8
[2022-12-22 09:57] VITALS: BP 122/64; PULSE 75; TEMP 36.7; O2SAT 98; BMI 28.3
== END 2022-12-22 11:58 | disposition home or self-care (01) ==
PROVIDERS: PCP Internal Medicine; Visit Provider Internal Medicine Rheumatology
DX: M54.50 Low back pain, unspecified (principal); R76.8 Other specified abnormal immunological findings in serum
CPT/HCPCS: 99213

== ENCOUNTER 2022-12-22 09:54 | Outpatient (REF) | payer MEDICAID, SELFPAY ==
--- NOTE | ~2022-12-22 | XR_ITS ---
EXAMINATION: XR LUMBOSACRAL SPINE CLINICAL INFORMATION: Low back pain COMPARISON: None available. TECHNIQUE: Three views of the lumbosacral spine. FINDINGS: There are 5 not ribs bearing lumbar spine vertebral bodies. Vertebral bodies are well aligned and intervertebral discs are preserved. Pedicles are intact. There is no spondylolysis or listhesis. Soft tissues are normal XR/XR lumbar spine 2-3V IMPRESSION: Unremarkable examination.
== END 2022-12-22 09:55 | disposition home or self-care (01) ==
LOC: HO.XRAY 09:54
PROVIDERS: PCP Internal Medicine; Visit Provider Internal Medicine Rheumatology
DX: M54.50 Low back pain, unspecified (principal)
CPT/HCPCS: 72100; 99212

== ENCOUNTER 2024-10-31 09:13 | Outpatient (REF) | payer MEDICAID, SELFPAY ==
--- OUTSIDE RECORDS SUMMARY | 2024-10-31 09:59 | XMS_ITS | Clinical Summary ---
Author Organization [facility] Address [address] [place] [address] Care Team Providers Care Manager Trust Name Role Phone Unavailable Primary Care Provider Unavailabl e Source Comments PLEASE NOTE, if this patient is a minor, it may be UNLAWFUL to discuss sensitive information that is contained in these records (such as FAMILY PLANNING, MENTAL HEALTH or SUBSTANCE ABUSE) with the minor patient's parent or other person without the patient's specific authorization.[facility] Allergies No known active allergies Medications No known medications Active Problems Problem Noted Date Diagnosed Date Non-Spanish speaking patient 02/19/2017 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 unclear if saw him or pulpwood cutter. Has f/u on May. Legally blind Legally blind 04/12/2013 Overview (04/12/2013): Paper work to be done at Dr Sauceda's office (ophthalmology) Abnormality of gait 04/12/2013 Resolved Problems Problem Noted Date Diagnosed Date Resolved Date GERD (gastroesophageal reflux disease) 04/12/2013 02/19/2017 Family History Medical History Relation Name Comments Depression Father Musculoskeletal Disorders Mother Depression Paternal Aunt 1 Heart Problems Paternal Aunt 1 Hypertension Paternal Aunt 1 Cancer Paternal Aunt 2 throat Relation Name Status Comments Father Alive Mother Alive Paternal Aunt 1 Alive Paternal Aunt 2 Alive Sister 1 Alive Sister 2 Alive Social History Tobacco Use Types Packs/Day Years Used Date Smoking Tobacco: Former Cigarettes 0.3 8 1 06/07/2004 - 04/07/2013 Smokeless Tobacco: Never Tobacco Cessation:Counseling Given: Yes Alcohol Use Standard Drinks/Week Comments Yes 0 (1 standard drink = 0.6 oz pur e alcohol) rare Social Connections Answer Date Recorded Social Connections and Isolation 0 01/14/2019 Financial Resource Strain Answer Date R ecorded Financial Resource Strain 0 2018 Stress Answer Date Recorded Stress 0 01/14/2019 Physical Activity Answer Date Recorded Physical Activity 0 01/14/2019 Food Insecurity Answer Date Recorded Food 0 01/14/2019 Transportation Needs Answer Date Record ed Transportation 0 01/14/2019 Housing Stability Answer Date Recorded Housing 0 01/14/2019 Safety and Environment Answer Date Luis Enrique rded Safety 0 01/14/2019 Utilities Answer Date Recorded Utilities 0 01/14/2019 Employment Answer Date Recorded Employment 0 01/14/2019 Sex and Gender Information Value Date Recorded Sex Assigned at Not on file Legal Sex Male 9:06 AM PDT Gender Identity Not on file Sexual Orientation Not on file Last Filed Vital Signs Vital Sign Reading Time Taken Comments Blood Pressure 137/82 02/19/2017 9:44 AM EDT Pulse 80 02/19/2017 9:44 AM EDT Temperature 36.8 ??C (98.2 ??F) 02/19/2017 9:44 AM ED T Respiratory Rate 12 02/19/2017 9:44 AM EDT Oxygen Saturation - - Inhaled Oxygen Concentration - - Weight 71.2 kg (157 lb) 02/19/2017 9:44 AM EDT Height 166.4 cm (5' 5.5 ) 02/19/2017 9:44 AM EDT Body Mass Index 25.73 02/19/2017 9:44 AM EDT Plan of Treatment Not on file Insurance [facility] [place] Member Subscriber Plan / Payer (Ef fective 2013-Present) Name:Kit Kerro Relation to Subscriber:Self Name:Lee Kerr Payer ID:[id number] Group ID:Not on file Type:Medicaid Address: [facility] [id number] [place] [id number] [facility] [address] [facility] [place] [address] [facility] DENTAL [place] MED[place] DENTAL
[2024-10-31 10:18] LABS: Alanine Aminotransferase 47 U/L (0-40); Albumin Level 4.5 g/dL (3.5-5.0); Alkaline Phosphatase 52 U/L (39-117); Anion Gap 9 (12-20); Aspartate Amino Transferase 28 U/L (5-37); Bilirubin Total 0.5 mg/dL (0.0-1.0); Blood Urea Nitrogen 15 mg/dL (9-16); Calcium 9.1 mg/dL (8.4-10.2); Carbon Dioxide 27 mmol/L (22-29); Chloride 107 mmol/L (96-108); Cholesterol 229 mg/dL (<200); Estimated Glomerular Filt Rate > 60; Glucose Random 100 mg/dL (60-115); HDL Cholesterol 47 mg/dL (>40); LDL Cholesterol Calculated 151 mg/dL (<100); Potassium 4.3 mmol/L (3.3-5.1); Sodium 139 mmol/L (135-145); Total Protein 7.3 g/dL (6.5-8.0); Triglycerides 157 mg/dL (<150)
== END 2024-10-31 09:14 | disposition home or self-care (01) ==
LOC: HO.10HDL 09:13
PROVIDERS: Visit Provider Internal Medicine
DX: H54.8 Legal blindness, as defined in USA (principal); I10 Essential (primary) hypertension; M19.042 Primary osteoarthritis, left hand; Z68.29 Body mass index [BMI] 29.0-29.9, adult
CPT/HCPCS: 36415; 80053; 80061

== ENCOUNTER 2025-01-26 06:38 | Outpatient (REF) | payer MEDICAID, SELFPAY ==
--- NOTE | ~2025-01-26 | XR_ITS ---
EXAMINATION: XR SHOULDER, LEFT CLINICAL INFORMATION: M25.512 - Pain in left shoulder COMPARISON: 04/21/2022. TECHNIQUE: Three views of the left shoulder. FINDINGS: Normal bone mineralization. No fracture, dislocation, or suspicious bone lesion. Normal alignment. The glenohumeral joint is normal. The AC joint is normal. There is a neutral lateral acromion. No undersurface spurring. The subacromial space is preserved. Remainder of the soft tissue and bony structures appear normal. XR/XR shoulder LT min 2V IMPRESSION: Normal left shoulder. Electronically signed by: Yonatan Kaur MD 01/26/2025 09:39 AM EDT
--- OUTSIDE RECORDS SUMMARY | 2025-01-26 06:40 | XMS_ITS | Clinical Summary ---
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 unclear if saw him or leaf sticker. Has f/u on May. Legally blind Legally [...] 80 02/19/2017 9:44 AM EDT Temperature 36.8 C (98.2 F) 02/19/2017 9:44 AM EDT Respiratory Rate 12 02/19/2017 9:44 AM EDT Oxygen Saturation - - Inhaled Oxygen Concentration - - Weight 71.2 kg (157 lb) 02/19/2017 9:44 AM EDT Height 166.4 cm (5' 5.5 ) 02/19/2017 9:44 AM EDT Body Mass Index 25.73 02/19/2017 9:44 AM EDT Plan of Treatment Not on file Insurance [facility] [employer] [place] Member Subscriber Plan / Payer ( fective 2013-Present) Name:Cirilo Lee Relation to Subscriber:Self Name:Cirilo Lee Payer ID:[id number] Group ID:Not on file Type:Medicaid Address: [facility] [id number] [place] [address] [facility] [place] [address] [address] [place] [address] [facility] DENTAL [place] MED[place] DENTAL
--- OUTSIDE RECORDS SUMMARY | 2025-01-26 06:40 | XMS_ITS | Clinical Summary ---
Author Organization [facility] ity Address [address] [place] [address] Care Team Providers Care Learning Disabled Teacher Name Role Phone Unavailable Primary Care Provider Unavailabl e Social History Tobacco Use Types Packs/Day Years Used Date Smoking Tobacco: Never Assessed Sex and Gender Information Value Date Recorded Sex Assigned at Not on file Legal Sex Male 1:15 PM EST Gender Identity Not on file Sexual Orientation Not on file Plan of Treatment Health Maintenance Due Date Last Done Comments DTaP,Tdap,and Td Vaccines (1 - Tdap) 02/04/2007 Hepatitis B Vaccines (1 of 3 - 19+ 3-dose series) 02/04/2007 COVID-19 Vaccine (2023-2 5 season) 2024 Depression Screening 05/24/2024 Influenza Vaccine (#1) 2025 HIB Vaccines Aged Out No longer eligi ble based on patient's age to complete this topic HPV Vaccines Aged Out No longer eligi ble based on patient's age to complete this topic Hepatitis A Vaccines Aged Out No long er eligible based on patient's age to complete this topic IPV Vaccines Aged Out No longer eligi ble based on patient's age to complete this topic MMR Vaccines Aged Out No longer eligi ble based on patient's age to complete this topic Meningococcal ACWY Vaccine Aged Out N o longer eligible based on patient's age to complete this topic Meningococcal B Vaccine Aged Out No l onger eligible based on patient's age to complete this topic Pneumococcal Vaccine: Pediat rics (0 to 5 Years) and At-Risk Patients (6 to 49 Years) Aged Out No longer eligible b ased on patient's age to complete this topic RSV Immunization Patients Un nicholas 20 months Aged Out No longer eligible b ased on patient's age to complete this topic Varicella Vaccines Aged Out No longer eligible based on patient's age to complete this topic
== END 2025-01-26 06:39 | disposition home or self-care (01) ==
LOC: HO.HOSX 06:38
PROVIDERS: Visit Provider Physician Assistant
DX: M75.82 Other shoulder lesions, left shoulder (principal)
CPT/HCPCS: 20610; 73030; 99212; J0665; J1100; J2003

== ENCOUNTER 2025-01-26 09:17 | Outpatient (AMB) | payer MEDICAID, SELFPAY ==
--- NOTE | 2025-01-26 09:38 | A.OFFVIS_ITS ---
Vital Signs 01/26/25 09:47 Height 5 ft 6 in Weight 188 lb BMI 30.3 Intake Visit Reasons: OV- Left shoulder impingement Intake Note: Lee is a 34 year old right hand dominant Citizen Of [place] speaking male who presents today for a follow up of left shoulder pain. At his last visit on 06/03/22 he was given an injection. Patient reports injection helped for a couple of months. He attended physical therapy however this did not help. His pain is located primarily in his shoulder and at times travels to his bicep area. He would like to discuss repeating injection. Stain Wiper Required: Yes Stain Wiper Services: Stain Wiper Present Stain Wiper Name: Andrews [id number]/jadon [id number] Allergies No Known Allergies Allergy (Verified 01/26/25 09:52) Medication List - Last Reconciled 01/26/25 by Sam Oliveros PA-C acetaminophen (Tylenol Extra Strength) 500 mg PO Q6H PRN HPI HPI OV- Left shoulder impingement: Details: 34 yo male returns to the office today for ongoing left shoulder pain. He was seen by me in 2022, sent to PT and had an injection, He states the PT was not helpful but the injection did help. He co pain with overhead reaching or performing lateral raise. After the injection wore off, his pain returned but progressivly got worse. He c/o pain when he sleep at night with changing positons. COUNT INCLUDES THE [facility] Medical History (Updated 12/22/22 @ 10:35 by Armand Conroy MD) History of seizure Seropositive rheumatoid arthritis Legally blind Surgical History No significant past surgical history Family History Mother Diabetes Fibromyalgia Social History Household Members: None Housing: Apartment Alcohol intake: never Patient Tobacco Use Status: Never used Tobacco Substance Use Type: Marijuana Current occupation: right hand dominant Review of Systems Const All systems reviewed & are unremarkable except as noted in HPI and below Physical Exam Vital Signs: BMI result Body Mass Index 30.3 Const General: cooperative and no acute distress Orientation/consciousness: patient oriented x3 Resp Effort & Inspection: normal respiratory effort and able to speak in complete sentences Cardio Peripheral pulses: Peripheral pulses 2+ throughout Neuro General: patient oriented x3 Extrem Other: Right shoulder normal to inspection. Tenderness over the bicipital groove and along the deltoid region of the shoulder. FF to 175, ER to 90, IR to S1. 5/5 RTC strength, positive burgos, Positive obriens. NVI. Office Procedures AMB Joint Injection/Aspiration Joint Injection/Aspiration Primary Site: left shoulder Prep: site was prepped using aseptic technique, ethochloride spray was applied and injection warnings given Injected: 40 mg of, with 3 mL of, 1% plain lidocaine, 0.25% bupivacaine, in the subcromial space and decadron Approach Used: posterolateral Coding - Glenohumeral/Tronchanteric Bursa/Intraarticular Procedure code (CPT) selection complete Results Reviewed Results Reviewed: Xrays were obtained in the office today and personally reviewed by me of the left shoulder show type 2 acromion Assessment & Plan Assessment & Plan (1) Tendonitis of left rotator cuff: Code(s): M75.82 - Other shoulder lesions, left shoulder Category: Medical Plan: Patient will continue with exercises for the shoulder we did review some scapular techniques to stabilize the shoulder and help decrease his pain. We also discussed the role of repeat injection which she would like to proceed with today. Left shoulder was injected today which he tolerated well. Continue with activities as tolerated and if symptoms persist or worsen he can contact our office otherwise follow up as needed. Orders: Orders XR shoulder LT min 2V Today M25.512 - Pain in left shoulder Coding Level of Care Code Est Pt Level 3 (38472) Complex EM visit Add On G2211 Diagnoses Tendonitis of left rotator cuff M75.82 CPT Codes Coding - Joint 7: 01025 - Glenohumeral/Tronchanteric Bursa/Intraarticular ([id number])
[2025-01-26 09:47] VITALS: BMI 30.3
== END 2025-01-26 11:13 | disposition home or self-care (01) ==
LOC: HO.HOS 09:18
PROVIDERS: PCP Internal Medicine; Visit Provider Physician Assistant
DX: M75.82 Other shoulder lesions, left shoulder (principal)
CPT/HCPCS: 20610; 99213

== ENCOUNTER → 2025-01-26 09:25 | Outpatient (BNV) | payer MEDICAID, SELFPAY | PROVIDERS: Visit Provider Radiology Diagnostic Radiology | DX: M25.512 Pain in left shoulder (principal) | CPT/HCPCS: 73030 ==

== ENCOUNTER 2025-01-26 10:55 | Outpatient (REF) | payer MEDICAID, SELFPAY ==
[2025-01-26 13:14] LABS: Alanine Aminotransferase 126 U/L (0-40); Albumin Level 4.6 g/dL (3.5-5.0); Alkaline Phosphatase 62 U/L (39-117); Anion Gap 13 (12-20); Aspartate Amino Transferase 46 U/L (5-37); Blood Urea Nitrogen 19 mg/dL (9-16); Calcium 8.8 mg/dL (8.4-10.2); Carbon Dioxide 27 mmol/L (22-29); Chloride 105 mmol/L (96-108); Cholesterol 216 mg/dL (<200); Estimated Glomerular Filt Rate > 60; HDL Cholesterol 47 mg/dL (>40); Potassium 4.5 mmol/L (3.3-5.1); Sodium 140 mmol/L (135-145); Total Protein 7.4 g/dL (6.5-8.0); Triglycerides 209 mg/dL (<150)
== END 2025-01-26 10:56 | disposition home or self-care (01) ==
LOC: HO.10HDL 10:55
PROVIDERS: Visit Provider Internal Medicine
DX: E78.00 Pure hypercholesterolemia, unspecified (principal); H54.8 Legal blindness, as defined in USA; I10 Essential (primary) hypertension; Z00.01 Encounter for general adult medical examination with abnormal findings
CPT/HCPCS: 36415; 80053; 80061